=== PATIENT | female | born 1990 | race Caucasian/White ===

== ENCOUNTER 2017-06-20 08:39 | Inpatient (IN) | payer BC, OTHER ==
[~2017-06-20] VITALS: Ht 177.8 cm; Wt 56.7 kg
--- NOTE | 2017-06-20 15:30 | NUR ---
Intake Assessment; Patient is a 26 year old female, AOX4, presented to [facility] to detoxify from ETOH. Patient was picked up from [facility] and arrived in intake at approximately 1500. She is the primary source of information. Patient appears to be slightly nervous, flushed face but remained cooperative throughout initial assessment. Patient denies any allergies or history of seizures. Admitting vital signs are as follows; BP 94/61, HR 79, Respirations 18, SPo2 97%, temperature 97.8, denies any pain with current CIWA score of 3. Educated patient regarding unit protocols and policies, verbalized understanding. Will continue with further assessment when patient is up on the unit.
[2017-06-20 16:00] VITALS: BP 94/64
[2017-06-20] MEDS ORDERED: MAGNESIUM HYDROXIDE 30 ML LIQUID UDC PO PRN (16:00)
[2017-06-20] MEDS ORDERED: ACETAMINOPHEN 325 MG TABLET PO PRN (16:00)
[2017-06-20] MEDS ORDERED: ONDANSETRON 4 MG/2 ML VIAL IM PRN (16:00)
[2017-06-20] MEDS ORDERED: MIRALAX 17 GM POWD.PACK PO PRN (16:00)
[2017-06-20] MEDS ORDERED: LORAZEPAM 1 MG TABLET PO PRN ×2 (16:00)
[2017-06-20] MEDS ORDERED: CLONIDINE HCL 0.1 MG TABLET PO PRN (16:00)
[2017-06-20] MEDS ORDERED: MAG HYDROX/AL HYDROX/SIMETH 30 ML LIQUID UDC PO PRN (16:00)
[2017-06-20] MEDS ORDERED: THIAMINE HCL 200 MG/2 ML VIAL IM ONE (16:00)
[2017-06-20] MEDS ORDERED: IBUPROFEN 400 MG TABLET PO PRN (16:00)
[2017-06-20] MEDS ORDERED: diphenhydrAMINE 50 MG CAPSULE PO PRN (16:00)
[2017-06-20] MEDS ORDERED: LOPERAMIDE HCL 2 MG CAPSULE PO PRN ×2 (16:00)
[2017-06-20] MEDS ORDERED: LORAZEPAM 2 MG/1 ML VIAL IM PRN (16:00)
[2017-06-20] MEDS ORDERED: ONDANSETRON ODT 4 MG TAB.RAPDIS SL PRN (16:00)
[2017-06-20] MEDS ORDERED: NORE1TAB18 PO (16:26)
[2017-06-20 16:27] LABS: *URINE HCG, QUAL NEGATIVE (NEGATIVE)
--- NOTE | 2017-06-20 16:30 | NUR ---
Admission note; Patient is a 26 year old female, AOX4, presented to [facility] to detoxify from ETOH. Patient was picked up from [facility] and arrived in intake at approximately 1500. She is the primary source of information. Patient is admitted under the care of Dr. Gallardo to room 325. Urine provided by patient for urine drug screen. Thorough body and belonging check done along with ERP PROGRAMMER. Patient appears to be slightly nervous, flushed face but remained cooperative throughout initial assessment. Patient denies any allergies or history of seizures. Admitting vital signs are as follows; BP 94/61, HR 79, Respirations 18, SPo2 97%, temperature 97.8, denies any pain with current CIWA score of 3. Discussed substance use history. Patient started drinking ETOH at the age of 13 y/o then progressed to daily use when she was 20 years old. Patient has been drinking ETOH (750ml of Vodka or 1-2 bottles of wine) on a daily basis since December 2016, last consumed 1-2 bottles of wine on 06/18/17. Patient struggled in multiple attempts to sobriety. Her longest sobriety was for 7 months (June 2016- beginning December 2016). Patient stayed in [facility] at that time. Patient denies any past medical history. Patient does not have a primary care physician. Family medical history discussed. Patient reported that his father is an alcoholic. Patient currently lives with her sister. Skin check done with no significant findings. Dr. Gallardo evaluated patient in intake office. Patient was oriented to unit by ERP PROGRAMMER. Safety measures in place. Will continue to monitor.
[2017-06-20 16:40] LABS: *AMPHETAMINE, URINE NEGATIVE (NEGATIVE); *BARBITURATE, URINE NEGATIVE (NEGATIVE); *CANNABINOID, URINE NEGATIVE (NEGATIVE); *COCCAINE, URINE NEGATIVE (NEGATIVE); *OPIATE, URINE NEGATIVE (NEGATIVE); *PHENCYCLIDINE SCREEN,URINE NEGATIVE (NEGATIVE)
--- NOTE | 2017-06-20 18:40 | NUR ---
End of shift note; Patient is AOX4. Patient was educated regarding unit protocols and policies, verbalized understanding. patient was seen and evaluated by MD. Patient is on fall and seizure precaution. Bed in lowest position, call light within reach. All safety measures secured. Met all needs.
[2017-06-20 19:04] LABS: BASOPHILS % (AUTO) 0.4 % (0.0-2.0); EOSINOPHILS # (AUTO) 0.1 K/uL (0.0-0.7); EOSINOPHILS % (AUTO) 0.9 % (0.0-7.0); HEMATOCRIT 39.4 % (37-47); HEMOGLOBIN 13.3 G/DL (12.0-16.0); LYMPHOCYTES # (AUTO) 2.5 K/UL (0.8-4.8); LYMPHOCYTES % (AUTO) 37.2 % (20.5-51.5); MEAN CORPUSCULAR HEMOGLOBIN 29.7 UUG (27.0-31.0); MEAN CORPUSCULAR HGB CONC 34 g/dL (32.0-37.0); MEAN CORPUSCULAR VOLUME 88.3 FL (81.0-99.0); MONOCYTES # (AUTO) 0.5 K/UL (0.1-1.30); MONOCYTES % (AUTO) 6.8 % (0.0-11.0); NEUTROPHILS # (AUTO) 3.6 K/UL (1.8-8.9); NEUTROPHILS % (AUTO) 54.7 % (38.5-71.5); PLATELET COUNT (AUTO) 215 K/UL (150-450); RED BLOOD CELL COUNT(AUTO) 4.46 MIL/UL (4.2-5.4); WHITE BLOOD COUNT (AUTO) 6.7 K/UL (4.0-11.2)
--- NOTE | 2017-06-20 19:05 | NUR ---
Start of shift note Received report from day shift nurse. Pt is a 26 yo female, A+Ox4, presenting to [facility] for ETOH dependence. Pt has NKA, is on Full Code status, and on Regular diet. Pt is on Fall and Seizure precautions. Pt has no medical HX to report. Pt is on PRN medications until starting taper in AM. No s/s of distress noted at this time. Respirations even and unlabored. Will continue to monitor.
[2017-06-20 19:12] LABS: ALANINE AMINOTRANSFERASE 30 U/L (14-59); ALKALINE PHOSPHATASE 52 U/L (50-136); ASPARTATE AMINOTRANSFERASE 21 U/L (15-37); BILIRUBIN,TOTAL 0.4 mg/dL (0.2-1.0); CARBON DIOXIDE 27 mmol/L (21-32); CHLORIDE 105 mmol/L (98-107); CREATININE 1.1 mg/dL (0.6-1.3); GLUCOSE 124 mg/dL (74-106); POTASSIUM 3.7 mmol/L (3.5-5.1); TOTAL PROTEIN, SERUM 7.4 g/dL (6.4-8.2); UREA NITROGEN, BLOOD 12 mg/dL (7-18)
[2017-06-20 19:22] LABS: ETHANOL < 3 MG/DL (0-0)
[2017-06-20 20:10] VITALS: BP 113/78
[2017-06-21] VITALS (7 sets, daily range): BP systolic 10–125; BP diastolic 67–83
--- NOTE | 2017-06-21 07:00 | NUR ---
End of shift note Pt is a 32 yo male, A+Ox4, presenting to [facility] for ETOH/Benzo dependence. Pt has Allergies to PCN and Aspirin. Pt is on Fall and Seizure precautions. Pt has HX of DM, HTN, Asthma, Anxiety, and Depression. Pt is on 5 day Ativan taper, tolerated well. Pt was given PRN Benadryl @2142. Pt slept for a total of 9 HRS. Last CIWA: 3 @0400. No s/s of distress noted at this time. Respirations even and unlabored. Will endorse to day shift nurse. Addendum: 06/21/17 at 0710 by JIMBO BLISS LVN Error, incorrect patient
--- NOTE | 2017-06-21 07:01 | NUR ---
End of shift note Pt is a 26 yo female, A+Ox4, presenting to [facility] for ETOH dependence. Pt has NKA, is on Full Code status, and on Regular diet. Pt is on Fall and Seizure precautions. Pt has no medical HX to report. Pt is on PRN medications until starting taper in AM. Pt slept for a total of 6 HRS. Last CIWA: 2 @0400. No s/s of distress noted at this time. Respirations even and unlabored. Will endorse to day shift nurse.
--- NOTE | 2017-06-21 07:02 | NUR ---
Start of Shift Notes: Received patient in her room. Alert and oriented x 4. Able to make her needs known. Respirations even and unlabored. No SOB noted. Skin warm and dry to touch. Abdomen soft and non-distended with (+) BS in all 4 quadrants. No complains of N/V/D or constipation noted. Voids independently. Ambulatory ad tabby with steady gait. Patient is a 26 year old female admitted for ETOH dependence who is only on PRNs at this time to manage her withdrawal symptoms. Prior to admission, patient was using 1-2 bottles of wine or 750cc of Vodka x 7 months. Last use was on 06/18/2017. Denies any past medical hx. NKA. FULL CODE. Regular diet. On fall and seizure precautions. Educated patient on her current plan of care and her medication regimen. Encouraged oral fluid intake and encouraged group participation to learn new skills to prevent relapse. Safety precautions in place. Call light in reach. Will continue to monitor closely.
[2017-06-21] MEDS: FOLIC ACID 1 MG TABLET PO SCH (08:39)
[2017-06-21] MEDS: PATIENT MAY USE OWN MED- MD OK PO SCH (08:39)
[2017-06-21] MEDS: MULTIVITAMINS,THERAPEUTIC TABLET PO SCH (08:39)
[2017-06-21] MEDS: THIAMINE HCL 100 MG TABLET PO SCH (08:39)
[2017-06-21] MEDS ORDERED: TUBERCULIN,PURIF.PROT.DERIV. 5 TU/0.1 ML TEST ID ONE (09:00)
--- NOTE | 2017-06-21 10:33 | NUR ---
TB test at 0900 not administered: Notified Dr. Gallardo of patient's current condition. CIWA 4. Does not meet criteria for PRN Ativan. Patient noted with mild anxiety, and mild sweats with fine tremors. Denies any complains of pain noted at this time. Notiifed MD that patient shows no s/s of respiratory distress. No cough, no congestion, no runny nose and no s/s of respiratory distress noted. Per MD, no need to administer TB test nor do CXR at this time.
[2017-06-21 15:08] LABS: *AMPHETAMINE, URINE NEGATIVE (NEGATIVE); *BARBITURATE, URINE NEGATIVE (NEGATIVE); *CANNABINOID, URINE NEGATIVE (NEGATIVE); *COCCAINE, URINE NEGATIVE (NEGATIVE); *OPIATE, URINE NEGATIVE (NEGATIVE); *PHENCYCLIDINE SCREEN,URINE NEGATIVE (NEGATIVE)
--- NOTE | 2017-06-21 18:55 | NUR ---
End of Shift Notes: Patient continues to be on PRNs at this time for management of ETOh withdrawal symptoms. Patients VS monitored closely. No significant abnormalities noted. Patients withdrawal symptoms were closely monitored. Initial CIWA 4, patient presented with mild anxiety and sweats and tremors felt but not observed. Last CIWA 0. Patient was able to participate in group and activities. Socializes with staff and other patients. Patient will be discharging tomorrow. UDS in and resulted. Compliant with care and treatment. All needs met and attended. Will continue to monitor closely.
--- NOTE | 2017-06-21 19:05 | NUR ---
Start of shift note Received report from day shift nurse. Pt is a 26 yo female, A+Ox4, presenting to [facility] for ETOH dependence. Pt has NKA, is on Full Code status, and on Regular diet. Pt is on Fall and Seizure precautions. Pt has no medical HX to report. Pt is on PRN medications until starting taper in AM. No s/s of distress noted at this time. Respirations even and unlabored. Will continue to monitor.
[2017-06-22 00:12] VITALS: BP 118/71
[2017-06-22 04:42] VITALS: BP 114/68
--- NOTE | 2017-06-22 07:00 | NUR ---
End of shift note Pt is a 26 yo female, A+Ox4, presenting to [facility] for ETOH dependence. Pt has NKA, is on Full Code status, and on Regular diet. Pt is on Fall and Seizure precautions. Pt has no medical HX to report. Pt is on PRN medications, tolerated well, and is due for discharge today. Pt slept for a total of 7 HRS. Last CIWA: 0 @0400. No s/s of distress noted at this time. Respirations even and unlabored. Will endorse to day shift nurse.
--- NOTE | 2017-06-22 07:02 | NUR ---
Start of Shift Notes: Received patient in her room. Alert and oriented x 4. Able to make her needs known. Respirations even and unlabored. No SOB noted. Skin warm and dry to touch. Abdomen soft and non-distended with (+) BS in all 4 quadrants. No complains of N/V/D or constipation noted. Voids independently. Ambulatory ad tabby with steady gait. Patient is a 26 year old female admitted for ETOH dependence who is only on PRNs at this time to manage her withdrawal symptoms. Prior to admission, patient was using 1-2 bottles of wine or 750cc of Vodka x 7 months. Last use was on 06/18/2017. Denies any past medical hx. NKA. FULL CODE. Regular diet. On fall and seizure precautions. Educated patient on her current plan of care and her medication regimen. Patient was educated on the discharge process. Verbalized good understanding. Encouraged oral fluid intake and encouraged group participation to learn new skills to prevent relapse. Safety precautions in place. Call light in reach. Will continue to monitor closely.
[2017-06-22 08:00] VITALS: BP 98/68
[2017-06-22 08:08] LABS: HEPATITIS B SURFACE AG Negative (Negative)
[2017-06-22] MEDS: MULTIVITAMINS,THERAPEUTIC TABLET PO SCH (08:26)
[2017-06-22] MEDS: FOLIC ACID 1 MG TABLET PO SCH (08:26)
[2017-06-22] MEDS: PATIENT MAY USE OWN MED- MD OK PO SCH (08:27)
[2017-06-22] MEDS: THIAMINE HCL 100 MG TABLET PO SCH (08:27)
--- NOTE | 2017-06-22 09:57 | NUR ---
Discharged: Educated patient on her discharge instructions. Patient verbalized good understanding of all teachings. All clothings, valuables and medication (BCP) were returned to the patient and placed inside blue and black duffel bag. Included inside the black and blue duffel bag was the discharge packet, UDS, and her BCP. CIWA 0. VS stable. patient left the unit and escorted by promotions director. Patient was picked up by [facility] to be transported to [facility]. Patient left in stable condition with no s.s of withdrawal noted.
== END 2017-06-22 09:57 | disposition other institution (70) | DRG 895 ==
LOC: SRC 14:54
PROVIDERS: ADMIT Internal Medicine; ATTEND Internal Medicine
PROC: HZ2ZZZZ Detoxification Services for Substance Abuse Treatment (ICD-10-PCS; principal; 2017-06-20)
PROC: HZ31ZZZ Individual Counseling for Substance Abuse Treatment, Behavioral (ICD-10-PCS; 2017-06-21)
PROC: HZ41ZZZ Group Counseling for Substance Abuse Treatment, Behavioral (ICD-10-PCS; 2017-06-21)
DX: F10.230 Alcohol dependence with withdrawal, uncomplicated (principal); Y90.9 Presence of alcohol in blood, level not specified; Z81.3 Family history of other psychoactive substance abuse and dependence; F17.200 Nicotine dependence, unspecified, uncomplicated; Z81.1 Family history of alcohol abuse and dependence; F41.9 Anxiety disorder, unspecified
CPT/HCPCS: 36415; 70030-TC; 80307; 83735; 84703; 85025; 86592; 86705; 86803; 87340; 87806; G0480